=== PATIENT | female | born 1985 | race Caucasian/White ===

== ENCOUNTER 2023-07-29 14:23 | Emergency (ER) | payer MEDICAID ==
[~2023-07-29] VITALS: Ht 160 cm; Wt 57.0 kg
[2023-07-29 14:26] VITALS: O2SAT 100
[2023-07-29 15:58] VITALS: BP 128/69; PULSE 61; RESP 16; TEMP 98.4
== END 2023-07-29 15:58 | disposition home or self-care (01) ==
LOC: ER 14:23
DX: M79.645 Pain in left finger(s) (principal)
CPT/HCPCS: 73140; 99283

== ENCOUNTER 2023-09-15 13:52 | Emergency (ER) | payer MEDICAID, OTHER ==
[~2023-09-15] VITALS: Ht 154.9 cm; Wt 60.0 kg
[2023-09-15 14:03] VITALS: BP 129/75; PULSE 75; RESP 18; TEMP 98.5; O2SAT 100
== END 2023-09-15 17:04 | disposition home or self-care (01) ==
LOC: ER 13:52
DX: R09.A2 Foreign body sensation, throat (principal); M54.2 Cervicalgia
CPT/HCPCS: 70490; 99284